=== PATIENT | female | born 1955 | race African-American/Black ===

== ENCOUNTER 2017-03-14 15:46 | Emergency (ER) | payer OTHER ==
[~2017-03-14] VITALS: Ht 167.6 cm; Wt 113.4 kg
[~2017-03-14 15:46] MED LIST: ADVAIR; ALBU8.5H8 IH; ASPI-618 PO; ESOM40CA PO
--- NOTE | 2017-03-14 16:44 | NUR ---
PT IS IN ROOM #2B. DR LUCIO EVALUATED THE PT.
[2017-03-14] MEDS ORDERED: HYDROCODONE/APAP 10-325 MG TABLET PO ONE (16:45)
[2017-03-14] MEDS ORDERED: KETOROLAC TROMETHAMINE 30 MG INJ IM ONE (16:45)
[2017-03-14] MEDS ORDERED: CYCLOBENZAPRINE HCL 10 MG TABLET PO ONE (16:45)
[2017-03-14] MEDS ORDERED: KETOROLAC TROMETHAMINE 30 MG INJ ONE (17:25)
[2017-03-14] MEDS ORDERED: CYCLOBENZAPRINE HCL 10 MG TABLET ONE (17:26)
[2017-03-14] MEDS ORDERED: HYDROCODONE/APAP 10-325 MG TABLET ONE (17:26)
--- NOTE | 2017-03-14 18:12 | NUR ---
PT WAS D/C TO HOME. D/C INSTRUCTIONS GIVEN TO THE PT.
[2017-03-14 18:13] VITALS: BP 145/79
== END 2017-03-14 18:29 | disposition home or self-care (01) ==
LOC: ER 15:46
DX: M54.40 Lumbago with sciatica, unspecified side (principal); E66.01 Morbid (severe) obesity due to excess calories; J44.9 Chronic obstructive pulmonary disease, unspecified; Z79.82 Long term (current) use of aspirin
CPT/HCPCS: 96372; 99283; A4663; J1885

== ENCOUNTER 2017-12-06 16:32 | Emergency (ER) | payer OTHER ==
[~2017-12-06] VITALS: Ht 167.6 cm; Wt 117.9 kg
[2017-12-06 17:05] LABS: *BILIRUBIN,URIN NEGATIVE (NEGATIVE); *BLOOD, URINE Trace-intact (NEGATIVE); *CLARITY,URINE SLIGHTLY CLOUDY (CLEAR); *COLOR,URINE YELLOW (YELLOW); *KETONES,URINE NEGATIVE (NEGATIVE); *PROTEIN,URINE NEGATIVE (NEGATIVE); *UROBILINOGEN,URINE 0.2 E.U./dl (NORMAL); LEUKOCYTE ESTERASE ,URINE NEGATIVE (NEGATIVE); NITRITE, URINE NEGATIVE (NEGATIVE); UGLUCOSE NEGATIVE (NEGATIVE)
[2017-12-06 17:16] LABS: BACTERIA,URINE NONE SEEN /HPF (NONE SEEN); RBC,URINE 0-3 /HPF (0-3); SQUAMOUS EPITHELIAL CELL,UR FEW /HPF (NONE SEEN); WBC,URINE 0-3 /HPF (0-3)
[2017-12-06] MEDS ORDERED: SULFAMETH/TRIMETH 800/160 MG TABLET ONE (17:30)
[2017-12-06] MEDS ORDERED: SULFAMETH/TRIMETH 800/160 MG TABLET PO ONE (17:30)
--- NOTE | 2017-12-06 17:34 | NUR ---
Patient discharged to home in stable conditon. Written and verbal after care instructions given. Patient verbalizes understanding of instructions.
== END 2017-12-06 17:36 | disposition home or self-care (01) ==
LOC: ER 16:35
DX: N39.0 Urinary tract infection, site not specified (principal); I10 Essential (primary) hypertension; J44.9 Chronic obstructive pulmonary disease, unspecified; Z79.82 Long term (current) use of aspirin; Z86.73 Personal history of transient ischemic attack (TIA), and cerebral infarction without residual deficits
CPT/HCPCS: 81001; 99283; A4663

== ENCOUNTER 2019-07-21 15:44 | Emergency (ER) | payer OTHER ==
[~2019-07-21] VITALS: Ht 167.6 cm; Wt 117.9 kg
[2019-07-21] MEDS ORDERED: HYDROMORPHONE 1 MG/1 ML DISP.SYRIN IM ONE (16:00)
[2019-07-21] MEDS ORDERED: KETOROLAC TROMETHAMINE 30 MG INJ IM ONE (16:00)
[2019-07-21] MEDS ORDERED: ONDANSETRON ODT 4 MG TAB.RAPDIS SL ONE (16:00)
[2019-07-21] MEDS ORDERED: HYDROMORPHONE 1 MG/1 ML DISP.SYRIN ONE (16:02)
[2019-07-21] MEDS ORDERED: ONDANSETRON ODT 4 MG TAB.RAPDIS ONE (16:02)
[2019-07-21] MEDS ORDERED: KETOROLAC TROMETHAMINE 30 MG INJ ONE (16:02)
--- NOTE | 2019-07-21 16:27 | NUR ---
Patient discharged to home in stable conditon. Written and verbal after care instructions given. Patient verbalizes understanding of instructions.pt walsk in steady gait. pt accompanied by son pt not driving.
[2019-07-21 16:28] VITALS: BP 131/71
== END 2019-07-21 16:29 | disposition home or self-care (01) ==
LOC: ER 15:44
DX: M54.42 Lumbago with sciatica, left side (principal); I10 Essential (primary) hypertension; J44.9 Chronic obstructive pulmonary disease, unspecified; Z90.710 Acquired absence of both cervix and uterus; Z90.49 Acquired absence of other specified parts of digestive tract; Z90.89 Acquired absence of other organs; Z79.82 Long term (current) use of aspirin; Z79.899 Other long term (current) drug therapy
CPT/HCPCS: 96372 ×2; 99283; J1170; J1885; A4663; Q0162

== ENCOUNTER 2019-07-29 15:52 | Emergency (ER) | payer OTHER ==
[~2019-07-29] VITALS: Ht 165.1 cm; Wt 113.4 kg
[2019-07-29] MEDS ORDERED: CYCL5TAB PO (16:14)
[2019-07-29] MEDS ORDERED: SPIR25TA6 PO (16:14)
[2019-07-29] MEDS ORDERED: GABA-534 PO (16:14)
[2019-07-29] MEDS ORDERED: IBUP-1953 PO (16:14)
[2019-07-29] MEDS ORDERED: HYDROMORPHONE 1 MG/1 ML DISP.SYRIN IM ONE (16:30)
[2019-07-29] MEDS ORDERED: ONDANSETRON 4 MG/2 ML VIAL IM ONE (16:30)
[2019-07-29] MEDS ORDERED: HYDROMORPHONE 2 MG/1 ML DISP.SYRIN ONE (16:32)
[2019-07-29] MEDS ORDERED: ONDANSETRON 4 MG/2 ML VIAL ONE (16:32)
--- NOTE | 2019-07-29 16:42 | NUR ---
Patient discharged to home in stable conditon. Written and verbal after care instructions given. Patient verbalizes understanding of instructions.pt not driving. pt with son who is driving
== END 2019-07-29 16:46 | disposition home or self-care (01) ==
LOC: ER 15:52
DX: M54.42 Lumbago with sciatica, left side (principal); I10 Essential (primary) hypertension; Z90.710 Acquired absence of both cervix and uterus; Z90.49 Acquired absence of other specified parts of digestive tract; Z79.82 Long term (current) use of aspirin; Z79.899 Other long term (current) drug therapy
CPT/HCPCS: 96372 ×2; 99283; J1170; J2405; A4663

== ENCOUNTER 2020-09-20 13:07 | Emergency (ER) | payer OTHER ==
[~2020-09-20] VITALS: Ht 165.1 cm; Wt 113.4 kg
[~2020-09-20 13:07] MED LIST changes: +CYCL5TAB PO; +GABA-534 PO; +IBUP-1953 PO; +SPIR25TA6 PO
[2020-09-20 13:29] LABS: *BILIRUBIN,URIN NEGATIVE (NEGATIVE); *BLOOD, URINE NEGATIVE (NEGATIVE); *CLARITY,URINE CLEAR (CLEAR); *COLOR,URINE YELLOW (YELLOW); *KETONES,URINE NEGATIVE (NEGATIVE); *UROBILINOGEN,URINE 0.2 E.U./dl (NORMAL); LEUKOCYTE ESTERASE ,URINE 1+ (NEGATIVE); NITRITE, URINE NEGATIVE (NEGATIVE); UGLUCOSE NEGATIVE (NEGATIVE)
[2020-09-20] MEDS ORDERED: KETOROLAC TROMETHAMINE 30 MG INJ IM ONE (13:30)
[2020-09-20] MEDS ORDERED: KETOROLAC TROMETHAMINE 30 MG INJ ONE (13:35)
[2020-09-20] MEDS ORDERED: NAPR-1164 PO (13:53)
[2020-09-20] MEDS ORDERED: CEPH500T PO (13:53)
[2020-09-20] MEDS ORDERED: CEFTRIAXONE 1 G VIAL IM ONE (14:00)
--- NOTE | 2020-09-20 14:00 | NUR ---
PT CO NAUSEA, MD NOTIFIED.
[2020-09-20] MEDS ORDERED: LIDOCAINE HCL 1% 20 ML VIAL ONE (14:03)
[2020-09-20] MEDS ORDERED: CEFTRIAXONE 1 G VIAL ONE (14:03)
[2020-09-20] MEDS ORDERED: ONDANSETRON ODT 4 MG TAB.RAPDIS ONE (14:11)
[2020-09-20] MEDS ORDERED: ONDANSETRON ODT 4 MG TAB.RAPDIS SL ONE (14:15)
--- NOTE | 2020-09-20 14:24 | NUR ---
Patient discharged to home in stable condition. Written and verbal after care instructions given. Patient verbalizes understanding of instructions. Stressed follow up or return to ER for worsening s/s.PT WALKS IN STEADY GAIT. NO SIGN OF REACTION TO ANTIBIOTIC NOTICED.
[2020-09-20 14:25] VITALS: BP 139/91
[2020-09-20 14:56] LABS: BACTERIA,URINE FEW /HPF (NONE SEEN); SQUAMOUS EPITHELIAL CELL,UR FEW /HPF (NONE SEEN)
[2020-09-20 14:57] LABS: MUCUS,URINE FEW /LPF (0-FEW); YEAST,URINE FEW /HPF (NONE SEEN)
== END 2020-09-20 14:26 | disposition home or self-care (01) ==
LOC: ER 13:07
DX: R10.9 Unspecified abdominal pain (principal); Z90.49 Acquired absence of other specified parts of digestive tract; Z90.710 Acquired absence of both cervix and uterus; Z86.73 Personal history of transient ischemic attack (TIA), and cerebral infarction without residual deficits; I10 Essential (primary) hypertension; E66.9 Obesity, unspecified; Z68.41 Body mass index [BMI] 40.0-44.9, adult; Z82.49 Family history of ischemic heart disease and other diseases of the circulatory system
CPT/HCPCS: 81001; 87086; 96372 ×2; 99284; J0696; J1885; J3490; A4663; Q0162

== ENCOUNTER 2021-07-20 15:41 | Emergency (ER) | payer OTHER ==
[~2021-07-20] VITALS: Ht 167.6 cm; Wt 117.9 kg
[~2021-07-20 15:41] MED LIST changes: +CEPH500T PO; +NAPR-1164 PO
[2021-07-20] MEDS ORDERED: CYCLOBENZAPRINE HCL 10 MG TABLET PO ONE (18:45)
[2021-07-20] MEDS ORDERED: HYDROMORPHONE 1 MG/1 ML DISP.SYRIN IM ONE (18:45)
[2021-07-20] MEDS ORDERED: GABAPENTIN 300 MG CAPSULE PO ONE (18:45)
[2021-07-20] MEDS ORDERED: ONDANSETRON ODT 4 MG TAB.RAPDIS SL ONE (18:45)
[2021-07-20] MEDS ORDERED: HYDR-3980 PO (18:47)
[2021-07-20] MEDS ORDERED: GABA600T12 PO (18:47)
[2021-07-20] MEDS ORDERED: ONDA4TAB5 PO (18:47)
[2021-07-20] MEDS ORDERED: CYCL10TA9 PO (18:47)
[2021-07-20] MEDS ORDERED: ONDANSETRON ODT 4 MG TAB.RAPDIS ONE (19:00)
[2021-07-20] MEDS ORDERED: GABAPENTIN 300 MG CAPSULE ONE (19:01)
[2021-07-20] MEDS ORDERED: HYDROMORPHONE 2 MG/1 ML DISP.SYRIN ONE (19:01)
[2021-07-20] MEDS ORDERED: CYCLOBENZAPRINE HCL 10 MG TABLET ONE (19:01)
--- NOTE | 2021-07-20 19:21 | NUR ---
Patient discharged to home in stable condition. Written and verbal after care instructions given. Patient verbalizes understanding of instructions. Stressed follow up or return to ER for worsening s/s.
== END 2021-07-20 19:22 | disposition home or self-care (01) ==
LOC: ER 15:44
DX: M54.41 Lumbago with sciatica, right side (principal); I10 Essential (primary) hypertension; Z86.73 Personal history of transient ischemic attack (TIA), and cerebral infarction without residual deficits; E66.9 Obesity, unspecified; Z68.41 Body mass index [BMI] 40.0-44.9, adult; Z90.49 Acquired absence of other specified parts of digestive tract; Z90.710 Acquired absence of both cervix and uterus; Z79.899 Other long term (current) drug therapy
CPT/HCPCS: 96372; 99284; J1170; A4663; Q0162

== ENCOUNTER 2022-06-04 04:03 | Emergency (ER) | payer OTHER ==
[~2022-06-04] VITALS: Ht 167.6 cm; Wt 127.0 kg
[~2022-06-04 04:03] MED LIST changes: +CYCL10TA9 PO; +GABA600T12 PO; +HYDR-3980 PO; +ONDA4TAB5 PO
[2022-06-04] MEDS ORDERED: IPRATROPIUM BROMIDE 0.5 MG/2.5 ML NEBU NEB ONE (04:15)
[2022-06-04] MEDS ORDERED: ALBUTEROL SULFATE 2.5 MG/3 ML NEBU NEB ONE (04:15)
[2022-06-04] MEDS ORDERED: predniSONE 10 MG TABLET PO ONE (04:15)
[2022-06-04] MEDS ORDERED: MAG HYDROX/AL HYDROX/SIMETH 30 ML LIQUID UDC PO ONE (04:15)
[2022-06-04] MEDS ORDERED: predniSONE 50 MG TABLET ONE (04:23)
[2022-06-04] MEDS ORDERED: predniSONE 10 MG TABLET ONE (04:23)
[2022-06-04] MEDS ORDERED: MAG HYDROX/AL HYDROX/SIMETH 30 ML LIQUID UDC ONE (04:23)
[2022-06-04] MEDS ORDERED: IPRATROPIUM BROMIDE 0.5 MG/2.5 ML NEBU ONE (04:47)
[2022-06-04] MEDS ORDERED: ALBUTEROL SULFATE 2.5 MG/3 ML NEBU ONE (04:47)
[2022-06-04 04:52] LABS: CREATININE 1.5 mg/dL (0.6-1.3); POTASSIUM 4.3 mmol/L (3.5-5.1)
[2022-06-04 04:53] LABS: HEMATOCRIT 37.4 % (31.2-41.9); MEAN CORPUSCULAR HEMOGLOBIN 25.7 uug (24.7-32.8); MEAN CORPUSCULAR VOLUME 81.3 fL (75.5-95.3); PLATELET COUNT (AUTO) 254 K/uL (179-408)
[2022-06-04] MEDS: MAGNESIUM SULFATE/D5W 100 ML IV SCH ×2 (06:00→06:57)
[2022-06-04] MEDS ORDERED: MAGNESIUM SULFATE/D5W 100 ML ONE (06:02)
[2022-06-04] MEDS ORDERED: ALBU18HF2 INH (06:25)
[2022-06-04] MEDS ORDERED: PRED50TA PO (06:25)
[2022-06-04] MEDS ORDERED: FLUT10.62 INH (06:25)
[2022-06-04 07:01] VITALS: BP 166/70
== END 2022-06-04 07:04 | disposition home or self-care (01) ==
LOC: ER 04:10
DX: J45.901 Unspecified asthma with (acute) exacerbation (principal); I45.10 Unspecified right bundle-branch block; I49.1 Atrial premature depolarization; Z86.73 Personal history of transient ischemic attack (TIA), and cerebral infarction without residual deficits; I10 Essential (primary) hypertension; E66.9 Obesity, unspecified; Z68.42 Body mass index [BMI] 45.0-49.9, adult; Z90.49 Acquired absence of other specified parts of digestive tract; Z82.49 Family history of ischemic heart disease and other diseases of the circulatory system; Z80.9 Family history of malignant neoplasm, unspecified; Z79.899 Other long term (current) drug therapy
CPT/HCPCS: 99285; 96365; 71045; 96366; 80048; 83880; 83735; 85025; 36415; 93005; 94644; J7512 ×2; J3475; 94640; A4663; J3590